=== PATIENT | male | born 1975 | race Caucasian/White ===

== ENCOUNTER 2016-06-21 03:33 | Emergency (ER) | payer OTHER ==
[~2016-06-21] VITALS: Ht 175.3 cm; Wt 127.0 kg
[2016-06-21 03:57] VITALS: BP 134/91
--- NOTE | 2016-06-21 04:12 | NUR ---
Patient to bed 02.
--- NOTE | 2016-06-21 04:20 | NUR ---
PATIENT PRESENTS TO ED WITH Cough, chest, rib and back pain with cough and deep breath x 3 days, C.O. N/V YESTERDAY. DENIES N/V/D AT THIS TIME; SKIN IS PINK/WARM/DRY; AAOX4 WITH EVEN AND STEADY GAIT; LUNGS CLEAR BL; HR EVEN AND REGULAR; PT DENIES ANY FEVER, CP, SOB, OR COUGH AT THIS TIME; PATIENT STATES PAIN OF 4/10 AT THIS TIME; VSS; PATIENT POSITIONED FOR COMFORT; HOB ELEVATED; BEDRAILS UP X2; BED DOWN. ER MD MADE AWARE OF PT STATUS.
--- NOTE | 2016-06-21 04:29 | NUR ---
Dr. Jin evaluating patient at bedside.
--- NOTE | 2016-06-21 04:29 | NUR ---
XRAY at bedside.
[2016-06-21] MEDS ORDERED: IBUPROFEN 800 MG TAB PO ONE (04:45)
--- NOTE | 2016-06-21 05:20 | NUR ---
BILATERAL WHEEZES WITH LABORED BREATHING NOTED. ER MD NOTIFIED. RT CALLED AT BEDSIDE. O2 SAT 98.
[2016-06-21] MEDS ORDERED: ALBUTEROL SULFATE/IPRATROPIU 3 ML SOL IH ONE (05:25)
--- NOTE | 2016-06-21 05:38 | NUR ---
LUGS CLEAR ON AUSCULTATION. NO S/S OF RESP DISTRESS PRESENT AT THIS MOMENT. ER MD NOTIFIED.
[2016-06-21 05:40] VITALS: BP 135/87
--- NOTE | 2016-06-21 05:40 | NUR ---
PER ER MD Patient STABLE with v/s stable FOR D/C. NO WHEEZES PRESENT AT THE MOMENT, LUGS CLEAR ON ASCULTATION. Written and verbal after care instructions given and explained. Patient alert, oriented and verbalized understanding of instructions. Ambulatory with steady gait. All questions addressed prior to discharge. ID band removed. Patient advised to follow up with PMD OR RETURN TO ER IF CONDITION GETS WORSE. Rx of ALBUTEROL,CODEINE PHOSPHATE/GUAIFENESIN AND IBUPROFEN given. Patient educated on indication of medication including possible reaction and side effects. Opportunity to ask questions provided and answered.
== END 2016-06-21 05:40 | disposition home or self-care (01) ==
LOC: MED 03:33
DX: J11.1 Influenza due to unidentified influenza virus with other respiratory manifestations (principal)
CPT/HCPCS: 36415; 71010; 87804; 94640; 94664; 99285; J7620; Q0092